=== PATIENT | male | born 1970 | race Caucasian/White ===

== ENCOUNTER 2018-07-08 07:14 | Day surgery (SDC) | payer OTHER ==
[2018-07-05 10:01] LABS: Potassium 4.2 mmol/L (3.5-5.1)
[2018-07-05 10:03] LABS: Absolute Lymphocytes (CBC) 1.5 K/uL (0.7-4.9); Absolute Monocytes 0.6 K/uL (0.1-1.3); Absolute Neutrophil 3.5 K/uL (1.8-8.0); Basophils % 0.3 % (0-1.3); Eosinophils % 2.1 % (0-4.4); Hematocrit 46.4 % (39.6-49.0); MPV 8.3 fL (7.6-11.3); Monocytes % 11.1 % (3.3-12.3); RBC Red Blood Cell Count 5.01 M/uL (4.33-5.43)
--- NOTE | 2018-07-05 11:01 | RAD REPORT ---
EXAM DESCRIPTION: RAD - Chest Pa And Lat (2 Views) - 07/05/2018 10:07 am CLINICAL HISTORY: Preop chest, left neck soft tissue mass removal pending COMPARISON: October 2015 TECHNIQUE: PA and lateral views of the chest were obtained. FINDINGS: The lungs are clear. Heart size is normal and central vasculature is within normal limit s. No pleural effusion or pneumothorax seen. No acute bony finding noted. No aortic abnormality. IMPRESSION: No acute cardiopulmonary process. No significant change from comparison.
[2018-07-08] MEDS ORDERED: NA CHLORIDE 0.9% 1,000 ML ONE (07:59)
[2018-07-08] MEDS ORDERED: CEFAZOLIN/SWI 1gm 1 GM/10 ML SYR ONE (08:00)
[2018-07-08] MEDS: BUPIVACAINE 0.5% PF 10 ML VIAL ONE ×2 (08:24→08:46)
[2018-07-08] MEDS ORDERED: PROPOFOL 200 MG/20 ML VIAL IV ONE (08:26)
[2018-07-08] MEDS ORDERED: FENTANYL CITR 100 MCG/2 ML ONE ×2 (08:27→09:11)
[2018-07-08] MEDS ORDERED: GLYCOPYRROLATE 0.2 MG/ML SYR ONE (08:28)
[2018-07-08] MEDS ORDERED: LIDOCAINE 2% MPF 5 ML VIAL ONE (08:28)
[2018-07-08] MEDS ORDERED: ROCURONIUM 50 MG/5 ML VIAL IV ONE (08:28)
[2018-07-08] MEDS ORDERED: ONDANSETRON 4 MG/2 ML VIAL ONE (08:31)
[2018-07-08] MEDS ORDERED: NEOSTIGMINE 1 MG/ML -10 ML VIAL ONE (08:31)
[2018-07-08] MEDS ORDERED: SUCCINYLCHOLINE 20 MG/ML (10 ML) IV ONE (08:33)
[2018-07-08] MEDS ORDERED: EPHEDRINE SULF 50 MG/ML VIAL ONE (09:20)
--- NOTE | 2018-07-08 09:56 | P.BOP ---
Preoperative diagnosis: infected right neck mass 4x4cm Postoperative diagnosis: same Primary procedure: Excisional biopsy with layer closure of infected right neck subQ mass 4x4cm Real Estate Firm Manager: Cira Holman) Estimated blood loss: <5cc Specimen: mass Findings: mass with yellowish color fluid Anesthesia: General Complications: None Transferred to: Recovery Room Condition: Good
[2018-07-08 11:03] VITALS: BP 114/61; TEMP 97.9; O2SAT 96
--- NOTE | 2018-07-09 | DS ---
Date of Discharge: 07/08/2018 Diagnosis: Infected right neck mass, 4 x 4 cm. Procedure: Excisional biopsy with layered closure of infected right next subcutaneous mass, 4 x 4 cm . Disposition: Home. Activity: As tolerated. No heavy lifting. Followup: Follow up in my office in 1 week. Call for appointment, [phone]. Keep the area dry for 48 hours, then may shower. Medications: Please see orders. AMBER/MODL Voice ID: [id number] Report ID: [id number]
--- NOTE | 2018-07-09 00:03 | OP ---
Date of Procedure: 07/08/2018 Surgeon: Shahid August MD Charcoal Kiln Burner: Cira Holman. Preoperative Diagnosis: Infected right neck mass, 4 x 4 cm. Postoperative Diagnosis: Infected right neck mass, 4 x 4 cm. Procedure: Excisional biopsy with layered closure of infected right neck subcutaneous mass, 4 x 4 cm . Specimen: Mass. The mass has some yellowish-color fluid cavity inside. Anesthesia: General plus local. Indications: This is the case of a male, who comes to us with a mass expanding in size. It is in th e neck region. It is not moving. It is nonpulsatile. Imaging was done of that area. It is getting bigger even this week, so he wants that removed. He believes that at point, he saw some redness vitaly k on the floor, so it may be associated with infection in the past. He understand the benefits, alte rnatives, and risks of excision which include, but not limited to infection, bleeding, damage to ezra cent structures, anesthesia complication, nonhealing wound, KS, and even . He also understands this may not relieve his symptoms, he might need more than one surgical intervention. He has the opt ions. He understand that we see there is kristan pus in that area. We might have to leave the area to heal by secondary intention with dressing changes. for him since he is going to [facility] in several days and he preferred not to have an open wound there. At the same time, we see that it is completely clean or we able to irrigate the area, not see firmed plugged, then we might close this in layers. Understanding that even in the next few days, we see a redness happen in that area, then we might have to remove the stitches and let it heal by secondary intention. He preferred that rout e. He understands the importance of his medication and being compliant with them. He signed a conse nt. The area of concern was marked by me and the patient in the holding room. Description Of Procedure: The patient was brought to the operating room, placed in supine position. Anesthesia was done without complication. Right neck was prepped and draped in usual sterile fashio n. Marcaine 0.5% was injected for local anesthetic, followed by a wedge incision of the skin to incl ude the skin covering that mass. Incision was carried down to deep subcutaneous mass. This goes all the way down to fascia of the muscle. The mass was removed. There was some yellowish fluid inside, I do not think from a pus. I cannot rule out any previous infection, but the cavity and the mass we re removed. Some of the fascia of the muscle came with the specimen too. The area was irrigated, ev en cultured, and then hemostasis was obtained and then we proceeded to close this in layers. A 0 chr omic in the deep layers even approximating the fascia and then 2-0 chromic for the subcutaneous tissu e, and then 3-0 nylon for the skin, interrupted, multiple. Sponge count and instrument counts were c orrect. The patient tolerated the procedure well. The patient was sent to recovery in stable condit ion. AMBER/LAVINIA Voice ID: [id number] Report ID: [id number]
== END 2018-07-08 11:10 | disposition home or self-care (01) ==
LOC: OR 07:14
PROVIDERS: ATTEND Surgery
PROC: 0JB40ZZ Excision of Right Neck Subcutaneous Tissue and Fascia, Open Approach (ICD-10-PCS; principal; 2018-07-08 09:15)
DX: R22.1 Localized swelling, mass and lump, neck (principal); E11.9 Type 2 diabetes mellitus without complications; I10 Essential (primary) hypertension; I25.10 Atherosclerotic heart disease of native coronary artery without angina pectoris; I25.2 Old myocardial infarction; Z95.810 Presence of automatic (implantable) cardiac defibrillator; Z95.5 Presence of coronary angioplasty implant and graft; Z79.82 Long term (current) use of aspirin; Z79.02 Long term (current) use of antithrombotics/antiplatelets; Z88.8 Allergy status to other drugs, medicaments and biological substances; Z82.49 Family history of ischemic heart disease and other diseases of the circulatory system
CPT/HCPCS: 36415; 71046; 80048; 82962; 85025; 87070; 87075; 87205; 88304; 88305; J0330; J0690; J2405; J2704; J2710; J3010; J7030

== ENCOUNTER 2019-05-16 01:19 | Emergency (ER) | payer OTHER ==
[2019-05-16] MEDS ORDERED: AMIODARONE HCL 150 MG/3 ML INJ IV ONE (01:28)
[2019-05-16] MEDS ORDERED: AMIODARONE IN DEXTROSE,ISO-OSM 0 MG/0 ML BAG IV ONE (01:29)
[2019-05-16] MEDS ORDERED: AMIODARONE IN DEXTROSE,ISO-OSM 360 MG/200 ML BAG IV ONE ×2 (01:37→05:57)
[2019-05-16] MEDS ORDERED: NA CHLORIDE 0.9% 1,000 ML ONE (01:41)
[2019-05-16] MEDS ORDERED: FENTANYL CITR 100 MCG/2 ML ONE (01:47)
[2019-05-16] MEDS ORDERED: MAGNESIUM SULFATE 1 gm IVPB 1 GM/100 ML BAG IV ONE (01:52)
[2019-05-16 02:03] LABS: Protime INR 0.98
[2019-05-16 02:04] LABS: Absolute Lymphocytes (CBC) 4.6 K/uL (0.7-4.9); Basophils % 0.2 % (0-1.3); Hematocrit 45.6 % (39.6-49.0); Lymphocytes % 41.9 % (15.3-44.8); MPV 7.9 fL (7.6-11.3); RBC Red Blood Cell Count 4.91 M/uL (4.33-5.43)
[2019-05-16 02:31] LABS: Magnesium 2.4 mg/dL (1.8-2.4); Potassium 3.2 mmol/L (3.5-5.1)
[2019-05-16 02:35] LABS: Troponin (Emerg Dept Use Only) 0.87 ng/mL (0.0-0.045)
[2019-05-16] MEDS ORDERED: KCL 20 MEQ/100 mL IVPB 20 MEQ/100 ML BAG IV ONE (02:45)
[2019-05-16] MEDS ORDERED: NA CHLORIDE 0.9% 250 ML ONE (02:45)
[2019-05-16 03:01] LABS: Digoxin Level 0.4 ng/mL (0.80-2.00)
[2019-05-16] MEDS ORDERED: DIGOXIN 0.25 MG/ML AMP ONE (03:13)
--- NOTE | 2019-05-16 04:07 | ER ---
Nurse's Notes [facility] Name: Phillip Pepe Age: 49 yrs Sex: Male : 1970 Arrival Date: 05/16/2019 Time: 01:21 Bed 4 Private MD: Diagnosis: Ventricular tachycardia;Alcohol use, unspecified with intoxication;Hypokalemia Presentation: 05/16 01:15 Presenting complaint: EMS states: patient has automatic defibrillator, he complaints of rr5 shocking episodes on his defibrillator. no irregular heart rhythm before and after the shocks. while en route 5x shocks noted. denies dizziness, pain. positive ETOH. 01:15 Transition of care: patient was not received from another setting of care. Onset of rr5 symptoms was May 16, 2019. Risk Assessment: Do you want to hurt yourself or someone else? Patient reports no desire to harm self or others. Initial Sepsis Screen: Does the patient meet any 2 criteria? No. Patient's initial sepsis screen is negative. Does the patient have a suspected source of infection? No. Patient's initial sepsis screen is negative. Care prior to arrival: None. 01:15 Method Of Arrival: EMS: [facility] rr5 01:15 Acuity: JETT 1 rr5 Historical: - Allergies: 01:15 Heparin (Patient states he clots when he takes heparin); rr5 - Home Meds: 01:15 aspirin 81 mg Oral chew 1 tab once daily [Active]; Atacand 32 mg Oral tab 1 tab once rr5 daily [Active]; atorvastatin 20 mg Oral tab 1 tab once daily [Active]; fenofibrate 160 mg Oral tab 1 tab once daily [Active]; digoxin 125 mcg Oral tab 1 tab once daily [Active]; torsemide 20 mg Oral tab 1 tab once daily [Active]; potassium chloride 20 mEq Oral TbTQ 1 tab once daily [Active]; Plavix 75 mg Oral tab 1 tab once daily [Active]; metoprolol tartrate 75mg Oral tab 1 tab 2 times per day [Active]; eplerenone 25 mg Oral tab 1 tab once daily [Active]; - PMHx: 01:15 CHF; Hypertension; High Cholesterol; rr5 - PSHx: 01:15 heart stent; defibrillator; rr5 - Immunization history:: Adult Immunizations up to date. - Coronavirus screen:: The patient has NOT traveled to [place] in the past 14 days. - Family history:: not pertinent. - Social history:: Smoking status: unknown Patient uses alcohol, occasionally. Patient/guardian denies using street drugs. - Hospitalizations: : No recent hospitalization is reported. - Ebola Screening: : Patient negative for fever greater than or equal to 101.5 degrees Fahrenheit, and additional compatible Ebola Virus Disease symptoms Patient denies exposure to infectious person Patient denies travel to an Ebola-affected area in the 21 days before illness onset. Screenin:25 Abuse screen: Denies threats or abuse. Denies injuries from another. Nutritional rr5 screening: No deficits noted. Tuberculosis screening: No symptoms or risk factors identified. Fall Risk Secondary diagnosis (15 points) irregular HR. IV access (20 points). Total Wiggins Fall Scale indicates Low Risk Score (25-44 pts). Fall prevention measures have been instituted. Side Rails Up X 2 Placed close to Nursing Station Frequent Obs/Assesments occuring As available Patient and Family Educated on Fall Prevention Program and strategies. Assessment: 01:15 General: Appears uncomfortable, ill, Behavior is calm, cooperative, appropriate for rr5 age, Smells of alcohol, Reports ETOH intake came via [facility] awake conscious and coherent, with internal defibrillator complaining of recurrent shock episode in his defibrillator. seen and examined by ED provider, ECG done with a rhythm of VTACH HR 162 bpm.. 01:15 Pain: Denies pain. Neuro: Level of Consciousness is awake, alert, obeys commands, rr5 Oriented to person, place, time, situation, Appropriate for age. Cardiovascular: Capillary refill < 3 seconds Patient's skin is warm and dry. Rhythm is ventricular tachycardia. Respiratory: Airway is patent Respiratory effort is even, unlabored, Respiratory pattern is regular, symmetrical. GI: No signs and/or symptoms were reported involving the gastrointestinal system. : No signs and/or symptoms were reported regarding the genitourinary system. EENT: No signs and/or symptoms were reported regarding the EENT system. Derm: Skin is intact, is healthy with good turgor, Skin temperature is warm. Musculoskeletal: Circulation, motion, and sensation intact. Capillary refill < 3 seconds. 01:20 Reassessment: first automatic cardioversion episode noted in ER. tracing of VTACH. ED rr5 provider aware. patient is awake alert. GCS 15/15. amiodarone 150mg/IV given slow IV push by janet ANTONIO. 02:15 Reassessment: at this time recurrent shock episodes noted 13x from the time patient rr5 came in ER, continue on amiodarone drip at 1mg/min. and vital signs taken and recorded, close monitoring observed. 02:30 Reassessment: Patient is alert, oriented x 3, equal unlabored respirations, skin rr5 warm/dry/pink. patient refused for fentanyl injection, stated he is not in pain. 02:58 Reassessment: Patient appears in no apparent distress at this time. patient becoming rr5 agitated wants to be transfer to other facility and talk to his real estate management specialist. charge nurse and ED provider aware. charge nurse spoke to patient at bedside. 03:15 Reassessment: Patient is alert, oriented x 3, equal unlabored respirations, skin rr5 warm/dry/pink. digoxin level 0.4 ED provider with order made and carried out. HR 122bpm. 03:26 Reassessment: Patient appears in no apparent distress at this time. Patient is alert, rr5 oriented x 3, equal unlabored respirations, skin warm/dry/pink. repeat ECG done sinus tachycardia noted. no unusual shock noted. Patient denies pain at this time. 03:30 Reassessment: yellow metal necklace with pendant given to patient runner out, with the [facility] approval and witness it by the patient. 04:20 Reassessment: Patient appears in no apparent distress at this time. Patient is alert, rr5 oriented x 3, equal unlabored respirations, skin warm/dry/pink. [facility] given report to jayden and accepted the case. 04:28 Reassessment: patient requested to transfer in [facility]. ED provider talked to [facility] patients real estate management specialist, trying to arrange the transfer. 05:16 Reassessment: Patient appears in no apparent distress at this time. jonn ANTONIO from [address] accepted the case. 05:54 Reassessment: Patient appears in no apparent distress at this time. Patient is alert, rr5 oriented x 3, equal unlabored respirations, skin warm/dry/pink. total of shocks while here in the ER 25 x. EMS get report from , patient is awake conscious and coherent breathing spontaneously with oxygen at 3 liters via nasal cannula. ongoing amiodarone drip at 1 mg/min infusing well. with IV cannula bilateral AC G20 intact. denies any pain or discomfort. Patient denies pain at this time. Patient states feeling better. Patient states symptoms have improved. Vital Signs: 01:15 BP 126 / 83; Pulse 162; Resp 28; Temp 97.7; Pulse Ox 95% on R/A; Weight 100.7 kg; rr5 Height 5 ft. 7 in. (170.18 cm); Pain 0/10; 01:30 BP 98 / 53; Pulse 155; Resp 24; Pulse Ox 99% on 3 lpm NC; rr5 01:45 BP 114 / 46; Pulse 188; Resp 19; Pulse Ox 100% on 3 lpm NC; rr5 01:50 BP 115 / 59; Pulse 188; Resp 16; Pulse Ox 99% on 3 lpm NC; rr5 02:00 BP 105 / 50; Pulse 122; Resp 15; Pulse Ox 100% on 3 lpm NC; rr5 02:30 BP 102 / 58; Pulse 183; Resp 16; Pulse Ox 99% on 3 lpm NC; rr5 03:00 BP 101 / 55; Pulse 175; Resp 19; Pulse Ox 98% on 3 lpm NC; rr5 03:15 BP 113 / 58; Pulse 122; Resp 20; Pulse Ox 98% on 3 lpm NC; rr5 03:45 BP 101 / 52; Pulse 119; Resp 17; Pulse Ox 98% on 3 lpm NC; rr5 04:20 BP 98 / 60; Pulse 120; Resp 17; Temp 97.8; Pulse Ox 99% on 3 lpm NC; rr5 05:15 BP 114 / 76; Pulse 98; Resp 17; Temp 98.1; Pulse Ox 99% on 3 lpm NC; rr5 05:57 BP 100 / 72; Pulse 100; Resp 16; Pulse Ox 99% 3 lpm ; Pain 0/10; rr5 01:15 Body Mass Index 34.77 (100.70 kg, 170.18 cm) rr5 Vitals: 01:20 Cardiac Rhythm Assessment V tach. rr5 02:30 Cardiac Rhythm Assessment V tach. rr5 [place] Coma Score: 01:15 Eye Response: spontaneous(4). Verbal Response: oriented(5). Motor Response: obeys rr5 commands(6). Total: 15. 02:00 Eye Response: spontaneous(4). Verbal Response: oriented(5). Motor Response: obeys rr5 commands(6). Total: 15. 05:57 Eye Response: spontaneous(4). Verbal Response: oriented(5). Motor Response: obeys rr5 commands(6). Total: 15. ED Course: 01:15 EKG done, by ED staff, reviewed by Latrell Camacho MD. rr5 01:15 Arm band placed on right wrist. rr5 01:21 Patient arrived in ED. ds1 01:25 Initial lab(s) drawn, by me, sent to lab. Inserted saline lock: 20 gauge in right bb antecubital area, using aseptic technique. Blood collected. 01:25 Patient has correct armband on for positive identification. Placed in gown. Bed in low rr5 position. Call light in reach. Side rails up X2. paper baler on. Pulse ox on. NIBP on. 01:29 Latrell Camacho MD is Attending Physician. rn 01:34 Adam Summers RN is Primary Nurse. rr5 01:35 Oxygen administration via nasal cannula \T\ 3L/min Response to oxygen therapy: symptoms rr5 improved. 01:50 Inserted saline lock: 20 gauge in left antecubital area, using aseptic technique. lp1 02:06 Triage completed. rr5 02:33 Notified ED physician of a critical lab result(s). Troponin 0.87. lp1 03:15 EKG done, by ED staff, reviewed by Latrell Camacho MD. rr5 04:52 One-on-one care X 120 minutes. bb 05:57 No provider procedures requiring assistance completed. Patient transferred, IV remains rr5 in place. intact, No redness/swelling at site. Administered Medications: 01:20 Drug: amiodarone 150 mg Volume: 100 ml; Route: IVPB; Infused Over: 10 mins; Site: right rr5 antecubital; 02:10 Follow up: Response: No change in condition; IV Status: Completed infusion rr5 01:25 Drug: NS 0.9% 500 ml Route: IV; Rate: bolus; Site: right antecubital; rr5 03:15 Follow up: Response: No adverse reaction; IV Status: Completed infusion; IV Intake: rr5 500ml 01:25 Drug: amiodarone 360 mg, D5W 200 ml Route: IVPB; Rate: 1 mg/min; Site: right rr5 antecubital; 01:45 Drug: Magnesium Sulfate 1 grams Route: IVPB; Infused Over: 1 hrs; Site: left rr5 antecubital; 03:17 Follow up: Response: No adverse reaction; IV Status: Completed infusion; IV Intake: rr5 100ml 01:50 Drug: fentaNYL (PF) 50 mcg {Note: RASS 2.} Route: IVP; Site: left antecubital; lp1 02:30 Follow up: Response: No adverse reaction rr5 02:45 Drug: Potassium Chloride 10 mEq Route: IV; Rate: calculated rate; Site: left rr5 antecubital; 03:45 Follow up: Response: No adverse reaction; IV Status: Completed infusion; IV Intake: [id number] 03:15 Drug: Digoxin 0.25 mg Route: IVP; Site: left antecubital; rr5 03:40 Follow up: Response: No adverse reaction; Marked relief of symptoms rr5 03:17 Not Given (Patient Refused): fentaNYL (PF) 25 mcg IVP once; RASS on ADMIN: Combtv4, rr5 Very Agttd3, Agttd2, Rstlss1, AlertClm0, Drwsy-1, Lt Sdtn-2, Mod Sdtn-3, Dp Sdtn-4, UnArsble-5 06:00 Drug: amiodarone 900 mg, D5W 500 ml {Note: giving continuously upon transfer to [address] .} Route: IVPB; Rate: 1 mg/min; Site: right antecubital; 06:03 Follow up: Response: No adverse reaction; IV Status: Infusion continued upon admission; rr5 IV Intake: 160ml Intake: 03:15 IV: 500ml; Total: 500ml. rr5 03:17 IV: 100ml; Total: 600ml. rr5 03:45 IV: 50ml; Total: 650ml. rr5 06:03 IV: 160ml; Total: 810ml. rr5 Output: 03:50 Urine: 700ml (Voided); Total: 700ml. rr5 Outcome: 04:05 ER care complete, transfer ordered by MD. antonio 05:57 Transferred by ground EMS to [facility], Transfer form completed. rr5 05:57 Condition: stable 05:57 Instructed on the need for transfer. 06:07 Patient left the ED. rr5 Signatures: BrodyAngeli ds1 Ana Gonzalez RN RN bb Latrell Camacho MD MD rn Pena, Laura, RN RN lp1 Adam Summers RN RN rr5 Corrections: (The following items were deleted from the chart) 06:07 05:54 Reassessment: Patient appears in no apparent distress at this time. Patient is rr5 alert, oriented x 3, equal unlabored respirations, skin warm/dry/pink. total of shocks while here in the ER 25 x. report given to EMS awake conscious and coherent breathing spontaneously with oxygen at 3 liters via nasal cannula. ongoing amiodarone drip at 1 mg/min infusing well. with IV cannula bilateral AC G20 intact. denies any pain or discomfort. Patient denies pain at this time. Patient states feeling better. Patient states symptoms have improved. rr5 06:16 /13 03:45 BP 101 / 52; Pulse 119bpm; Resp 17bpm; Pulse Ox 98% 3 lpm Nasal Cannula; rr5rr5
--- NOTE | 2019-05-16 04:07 | EDPHYS ---
Physician Documentation [facility] Name: Phillip Pepe Age: 49 yrs Sex: Male : 1970 Arrival Date: 05/16/2019 Time: 01:21 Bed 4 Private MD: ED Physician Latrell Camacho HPI: 05/16 01:53 This 49 yrs old Male presents to ER via Unassigned with complaints of rn defibrillator shocking. 01:53 Reports several episodes of his defibrillatory shocking him, began approx 30 min prior rn to arrival, has been feeling ok, no medication changes, has had it in since 2011 without problems, was drinking moderately prior to this beginning. . Reports other than pain from being shocked, feels ok. . Onset: The symptoms/episode began/occurred just prior to arrival. Severity of symptoms: At their worst the symptoms were moderate in the emergency department the symptoms are unchanged. The patient has not experienced similar symptoms in the past. The patient has not recently seen a physician. Historical: - Allergies: 01:15 Heparin (Patient states he clots when he takes heparin); rr5 - Home Meds: 01:15 aspirin 81 mg Oral chew 1 tab once daily [Active]; Atacand 32 mg Oral tab 1 tab once rr5 daily [Active]; atorvastatin 20 mg Oral tab 1 tab once daily [Active]; fenofibrate 160 mg Oral tab 1 tab once daily [Active]; digoxin 125 mcg Oral tab 1 tab once daily [Active]; torsemide 20 mg Oral tab 1 tab once daily [Active]; potassium chloride 20 mEq Oral TbTQ 1 tab once daily [Active]; Plavix 75 mg Oral tab 1 tab once daily [Active]; metoprolol tartrate 75mg Oral tab 1 tab 2 times per day [Active]; eplerenone 25 mg Oral tab 1 tab once daily [Active]; - PMHx: 01:15 CHF; Hypertension; High Cholesterol; rr5 - PSHx: 01:15 heart stent; defibrillator; rr5 - Immunization history:: Adult Immunizations up to date. - Coronavirus screen:: The patient has NOT traveled to [place] in the past 14 days. - Family history:: not pertinent. - Social history:: Smoking status: unknown Patient uses alcohol, occasionally. Patient/guardian denies using street drugs. - Hospitalizations: : No recent hospitalization is reported. - Ebola Screening: : Patient negative for fever greater than or equal to 101.5 degrees Fahrenheit, and additional compatible Ebola Virus Disease symptoms Patient denies exposure to infectious person Patient denies travel to an Ebola-affected area in the 21 days before illness onset. ROS: 01:53 Constitutional: Negative for fever, chills, and weight loss, Eyes: Negative for injury, rn pain, redness, and discharge, Neck: Negative for injury, pain, and swelling, Cardiovascular: Negative for chest pain, palpitations, and edema, Respiratory: Negative for shortness of breath, cough, wheezing, and pleuritic chest pain, Abdomen/GI: Negative for abdominal pain, nausea, vomiting, diarrhea, and constipation, MS/Extremity: Negative for injury and deformity, Skin: Negative for injury, rash, and discoloration, Neuro: Negative for headache, weakness, numbness, tingling, and seizure. Exam: 01:53 Constitutional: Overweight male, appears to be intoxicated Head/Face: Normocephalic, rn atraumatic. ENT: dry MM Cardiovascular: Tachycardic, irregular, intact distal pulses Respiratory: No increased work of breathing, no retractions or nasal flaring. Abdomen/GI: soft, non-tender MS/ Extremity: Pulses equal, no cyanosis. Neurovascular intact. Full, normal range of motion. Equal circumference. Neuro: Awake and alert, GCS 15, oriented to person, place, time, and situation. Cranial nerves II-XII grossly intact. Motor strength 5/5 in all extremities. Sensory grossly intact. Vital Signs: 01:15 BP 126 / 83; Pulse 162; Resp 28; Temp 97.7; Pulse Ox 95% on R/A; Weight 100.7 kg; rr5 Height 5 ft. 7 in. (170.18 cm); Pain 0/10; 01:30 BP 98 / 53; Pulse 155; Resp 24; Pulse Ox 99% on 3 lpm NC; rr5 01:45 BP 114 / 46; Pulse 188; Resp 19; Pulse Ox 100% on 3 lpm NC; rr5 01:50 BP 115 / 59; Pulse 188; Resp 16; Pulse Ox 99% on 3 lpm NC; rr5 02:00 BP 105 / 50; Pulse 122; Resp 15; Pulse Ox 100% on 3 lpm NC; rr5 02:30 BP 102 / 58; Pulse 183; Resp 16; Pulse Ox 99% on 3 lpm NC; rr5 03:00 BP 101 / 55; Pulse 175; Resp 19; Pulse Ox 98% on 3 lpm NC; rr5 03:15 BP 113 / 58; Pulse 122; Resp 20; Pulse Ox 98% on 3 lpm NC; rr5 03:45 BP 101 / 52; Pulse 119; Resp 17; Pulse Ox 98% on 3 lpm NC; rr5 04:20 BP 98 / 60; Pulse 120; Resp 17; Temp 97.8; Pulse Ox 99% on 3 lpm NC; rr5 05:15 BP 114 / 76; Pulse 98; Resp 17; Temp 98.1; Pulse Ox 99% on 3 lpm NC; rr5 05:57 BP 100 / 72; Pulse 100; Resp 16; Pulse Ox 99% 3 lpm ; Pain 0/10; rr5 01:15 Body Mass Index 34.77 (100.70 kg, 170.18 cm) rr5 Melyssa Coma Score: 01:15 Eye Response: spontaneous(4). Verbal Response: oriented(5). Motor Response: obeys rr5 commands(6). Total: 15. 02:00 Eye Response: spontaneous(4). Verbal Response: oriented(5). Motor Response: obeys rr5 commands(6). Total: 15. 05:57 Eye Response: spontaneous(4). Verbal Response: oriented(5). Motor Response: obeys rr5 commands(6). Total: 15. MDM: 01:29 Patient medically screened. rn 01:55 ED course: Pt with frequent shocks and seems to follow periods of vtach, possibly rn related to ETOH intake. Amiodarone given with decreased number of defibrillation but still happening. Patient still reports feeling ok in between shocks. Pt not aware of all of his medications at this point. . 03:24 ED course: Pt now sinus rhythm, has not had defibrillation in some time. . rn 04:04 Differential Diagnosis Ventricular tachycardia, electrolyte disturbance, ETOH rn intoxication. Data reviewed: vital signs, nurses notes, lab test result(s), EKG, radiologic studies, plain films, and as a result, I will admit patient. Counseling: I had a detailed discussion with the patient and/or guardian regarding: the historical points, exam findings, and any diagnostic results supporting the discharge/admit diagnosis, lab results, radiology results, the need to transfer to another facility, for higher level of care. Response to treatment: the patient's symptoms have markedly improved after treatment, and as a result, I will admit patient. Admission orders: after a detailed discussion of the patient's condition and case, the admit orders are written by me. ED course: Pt accepted to CCU at [facility], on amiodarone drip, now sinus and asymptomatic.. 05/16 01:29 Order name: Basic Metabolic Panel rn 05/16 01:29 Order name: CBC with Diff rn 05/16 01:29 Order name: Magnesium rn 05/16 01:29 Order name: NT PRO-BNP rn 05/16 01:29 Order name: PT-INR rn 05/16 01:29 Order name: Troponin (emerg Dept Use Only) rn 05/16 01:30 Order name: Digoxin rn 05/16 01:30 Order name: ETOH Level rn 05/16 02:10 Order name: CBC with Automated Diff; Complete Time: 02:11 EDMS 05/16 02:10 Order name: Protime (+INR); Complete Time: 02:11 EDMS 05/16 02:31 Order name: Alcohol Serum/Plasma; Complete Time: 02:33 EDMS 05/16 02:31 Order name: Basic Metabolic Panel; Complete Time: 03:06 EDMS 05/16 02:31 Order name: Magnesium; Complete Time: 03:06 EDMS 05/16 02:37 Order name: Troponin (Emerg Dept Use Only); Complete Time: 03:06 EDMS 05/16 01:29 Order name: XRAY Chest (1 view) rn 05/16 01:29 Order name: EKG; Complete Time: 01:32 rn 05/16 01:29 Order name: Cardiac monitoring; Complete Time: 01:54 05/16 01:29 Order name: EKG - Nurse/Tech; Complete Time: :54 rn 05/16 01:29 Order name: IV Saline Lock; Complete Time: :55 05/16 01:29 Order name: Labs collected and sent; Complete Time: 01:55 rn 05/16 02:37 Order name: NT PRO-BNP; Complete Time: 03:06 EDMS 05/16 03:03 Order name: Digoxin Level; Complete Time: 03:06 EDMS 05/16 01:29 Order name: O2 Per Protocol; Complete Time: 01:55 rn 05/16 01:29 Order name: O2 Sat Monitoring; Complete Time: 01:55 rn 05/16 03:26 Order name: ECG strip; Complete Time: 03:26 rr5 05/16 03:35 Order name: EKG - Nurse/Tech; Complete Time: 03:35 rr5 Administered Medications: 01:20 Drug: amiodarone 150 mg Volume: 100 ml; Route: IVPB; Infused Over: 10 mins; Site: right rr5 antecubital; 02:10 Follow up: Response: No change in condition; IV Status: Completed infusion rr5 01:25 Drug: NS 0.9% 500 ml Route: IV; Rate: bolus; Site: right antecubital; rr5 03:15 Follow up: Response: No adverse reaction; IV Status: Completed infusion; IV Intake: rr5 500ml 01:25 Drug: amiodarone 360 mg, D5W 200 ml Route: IVPB; Rate: 1 mg/min; Site: right rr5 antecubital; 01:45 Drug: Magnesium Sulfate 1 grams Route: IVPB; Infused Over: 1 hrs; Site: left rr5 antecubital; 03:17 Follow up: Response: No adverse reaction; IV Status: Completed infusion; IV Intake: rr5 100ml 01:50 Drug: fentaNYL (PF) 50 mcg {Note: RASS 2.} Route: IVP; Site: left antecubital; lp1 02:30 Follow up: Response: No adverse reaction rr5 02:45 Drug: Potassium Chloride 10 mEq Route: IV; Rate: calculated rate; Site: left rr5 antecubital; 03:45 Follow up: Response: No adverse reaction; IV Status: Completed infusion; IV Intake: [id number] 03:15 Drug: Digoxin 0.25 mg Route: IVP; Site: left antecubital; rr5 03:40 Follow up: Response: No adverse reaction; Marked relief of symptoms rr5 03:17 Not Given (Patient Refused): fentaNYL (PF) 25 mcg IVP once; RASS on ADMIN: Combtv4, rr5 Very Agttd3, Agttd2, Rstlss1, AlertClm0, Drwsy-1, Lt Sdtn-2, Mod Sdtn-3, Dp Sdtn-4, UnArsble-5 06:00 Drug: amiodarone 900 mg, D5W 500 ml {Note: giving continuously upon transfer to [address] .} Route: IVPB; Rate: 1 mg/min; Site: right antecubital; 06:03 Follow up: Response: No adverse reaction; IV Status: Infusion continued upon admission; 5 IV Intake: 160ml Disposition: 05/16/19 04:05 Transfer ordered to [facility]. Diagnosis are Ventricular tachycardia, Alcohol use, unspecified with intoxication, Hypokalemia. - Reason for transfer: Higher level of care. - Accepting physician is Dr. Rosales. - Condition is Stable. - Problem is new. - Symptoms have improved. Critical care time excluding procedures: 04:04 Critical care time: Bedside Care: 30 minutes, Consultation: 5 minutes. Total time: 35 rn minutes Signatures: Dispatcher [employer] EDMS Latrell Camacho MD MD rn Pena, Laura, RN RN lp1 Adam Summers RN RN rr5 Corrections: (The following items were deleted from the chart) 04:40 04:05 05/16/2019 04:[address] [facility]. rn Diagnosis is Ventricular tachycardia; Alcohol use, unspecified with intoxication; Hypokalemia. Reason for transfer: Higher level of care. Accepting physician is Dr. Sanchez. Condition is Stable. Problem is new. Symptoms have improved. rn 06:07 04:40 05/16/2019 04:05 Transfer ordered to [facility]. Diagnosis is Ventricular rr5 tachycardia; Alcohol use, unspecified with intoxication; Hypokalemia. Reason for transfer: Higher level of care. Accepting physician is Dr. Rosales. Condition is Stable. Problem is new. Symptoms have improved. rn
--- NOTE | 2019-05-16 08:22 | RAD REPORT ---
EXAM DESCRIPTION: RAD - Chest Single View - 05/16/2019 1:59 am CLINICAL HISTORY: defibrillator discharge, chest pain COMPARISON: Chest Pa And Lat (2 Views) dated 07/05/2018 TECHNIQUE: AP portable chest image was obtained 05/16/2019 1:59 am . FINDINGS: Lung volumes are low. No focal lung parenchymal process. Heart size is accentuated by shal low inspiration. Patient likely has a mild or borderline cardiomegaly. Vasculature and lung markings within normal limits. Defibrillator is in place. No measurable pleural effusion and no pneumothorax. No acute bony abnormality seen. No acute aortic findings suspected. IMPRESSION: No acute cardiopulmonary process.
--- NOTE | 2019-05-16 13:34 | EKG ---
Test Date: 2019-05-16 Test Time: 01:22:01 Tool Keeper: RR MEASUREMENT RESULTS: Intervals: Rate: 133 CT: QRSD: 146 QT: 328 QTc: 488 [place]: P: CT: QRS: -74 T: 68 INTERPRETIVE STATEMENTS: Atrial fibrillation with rapid ventricular response with premature ventricular or aberrantly conducted complexes Right bundle branch block Left anterior fascicular block Bifascicular block Septal infarct, age undetermined Lateral infarct, age undetermined Abnormal ECG Compared to ECG 05/16/2019 01:20:58 Left anterior fascicular block now present Bifascicular block now present Sinus tachycardia no longer present Myocardial infarct finding still present Electronically Signed On 05-16-19 13:34:02 SUPERVISOR REAL ESTATE OFFICE by Wally Magdaleno
--- NOTE | 2019-05-16 13:34 | EKG ---
Test Date: 2019-05-16 Test Time: 03:21:05 Gearcase Assembler: RR MEASUREMENT RESULTS: Intervals: Rate: 122 MA: 150 QRSD: 146 QT: 334 QTc: 475 [place]: P: 62 MA: 150 QRS: -62 T: 89 INTERPRETIVE STATEMENTS: Sinus tachycardia Right bundle branch block Left axis Abnormal ECG Compared to ECG 05/16/2019 01:22:01 Atrial fibrillation no longer present Electronically Signed On 05-16-19 13:33:44 GALLERY ASSISTANT by Wally Magdaleno
--- NOTE | 2019-05-16 13:35 | EKG ---
Test Date: 2019-05-16 Test Time: 01:20:58 Certified Anesthesiologist Assistant: RR MEASUREMENT RESULTS: Intervals: Rate: 140 [place]: 144 QRSD: 136 QT: 322 QTc: 491 [place]: P: [place]: 144 QRS: 234 T: 39 INTERPRETIVE STATEMENTS: Suspect arm lead reversal, interpretation assumes no reversal Sinus tachycardia with frequent and consecutive premature ventricular complexes Right bundle branch block Septal infarct, age undetermined Lateral infarct, age undetermined Abnormal ECG Compared to ECG 09/30/2015 17:46:32 Ventricular premature complex(es) now present Right bundle-branch block now present Left-axis deviation no longer present Myocardial infarct finding still present Electronically Signed On 05-16-19 13:34:05 GUEST RELATIONS COORDINATOR by Wally Magdaleno
[2019-05-16 19:00] VITALS: TEMP 98.1; O2SAT 99
[2019-05-16 19:03] VITALS: BP 100/72
== END 2019-05-16 06:07 | disposition short-term general hospital (02) ==
LOC: ER 01:19
DX: F10.129 Alcohol abuse with intoxication, unspecified (principal); E87.6 Hypokalemia; I10 Essential (primary) hypertension; E78.00 Pure hypercholesterolemia, unspecified; I50.9 Heart failure, unspecified; Z79.01 Long term (current) use of anticoagulants; Z79.82 Long term (current) use of aspirin; Z88.8 Allergy status to other drugs, medicaments and biological substances
CPT/HCPCS: 93005 ×3; 85025; 80048; 36415; 80320; 83735; 85610; 80162; 84484; 83880; 71045; 99291; 99292; J1160; J0282; J3010; J3475; J7030 ×2